=== PATIENT | female | born 1975 | race Caucasian/White ===

== ENCOUNTER → 2021-01-20 | Outpatient (CLI) | payer BC ==
[~2021-01-20] MED LIST: ADDERALL 20 MG20 MG PO; ADIPEX-P37.5 MG PO; ALPRAZOLAM1 MG PO; ASPIRIN-DIPYRI1 EACH PO; MELOXICAM15 MG PO; PRINIVIL20 MG PO; VITAMIN C WITH500 MG PO; VITAMIN D325 MC3 PO; ZINC30 MG PO
[2021-01-20 14:20] LABS: HEMOGLOBIN 15.4 gm/dL (12.0-15.0); MCH 31.7 pg (26.0-34.0); MCHC 34.3 g/dL (28.0-37.0); MCV 92.5 fL (80.0-100.0); RBC 4.87 mil/uL (4.20-5.00); RDW 13.1 % (10.5-14.5); WBC 11.5 thou/uL (4.0-11.0)
[2021-01-20 14:24] LABS: URINE BILIRUBIN NEGATIVE (Negative); URINE BLOOD NEGATIVE (Negative); URINE COLOR YELLOW; URINE GLUCOSE-RANDOM* NEGATIVE (Negative); URINE KETONES NEGATIVE (Negative); URINE LEUKOCYTES-REFLEX 1+ (Negative); URINE NITRITE-REFLEX NEGATIVE (Negative); URINE PROTEIN (DIPSTICK) NEGATIVE (Negative); URINE UROBILINOGEN 0.2 E.U./dl (0.2-1.0)
[2021-01-20 14:25] LABS: URINE CLARITY SL HAZY
[2021-01-20 14:31] LABS: CASTS None Seen /LPF (None Seen); CRYSTALS None Seen /LPF (None Seen); SQUAMOUS >10 Many /LPF (0-3); URINE RBC None Seen /HPF (NONE SEEN); URINE WBC-REFLEX 6-15 Few /HPF (0-5)
[2021-01-20 14:42] LABS: INR 1.03; PROTIME 11.2 Seconds (10.5-12.1)
[2021-01-20 14:47] LABS: ALBUMIN 3.9 g/dL (3.4-5.0); CALCIUM 9.2 mg/dL (8.5-10.1); CREATININE 0.8 mg/dL (0.6-1.0); POTASSIUM 4.3 mmol/L (3.5-5.1)
--- NOTE | 2021-01-21 07:11 | EKG ---
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 HUBBARD : 1975 Requested By: Jas Holm Order Number: [id number] MD: Juventino Ochoa Measurements Intervals [place] Rate: 84 P: 151 MN: 164 QRS: -32 QRSD: 95 T: 145 QT: 400 QTc: 473 Interpretive Statements Sinus or ectopic atrial rhythm Left axis deviation Borderline low voltage, extremity leads Abnormal R-wave progression, late transition Nonspecific T abnormalities, lateral leads Lead(s) II were not used for morphology analysis Baseline wander in lead(s) V1 No previous ECG available for comparison Electronically Signed On 01-21-2021 7:11:33 CDT by Juventino Ochoa [email or web address] <ELECTRONICALLY SIGNED> By: Juventino Ochoa MD, FACC 01/21/21 0711 1350 1350 Juventino Ochoa MD, FAC /EPI
== END ==
LOC: PAC 13:11
PROVIDERS: ATTEND Orthopaedic Surgery
DX: I10 Essential (primary) hypertension (principal); M17.11 Unilateral primary osteoarthritis, right knee

== ENCOUNTER → 2021-02-02 | Outpatient (CLI) | payer BC ==
[~2021-02-02] MED LIST changes: +DILAUDID 2 MG TA2 MG PO; +PERCOCET 10-321 EACH PO; +TRI-BUFFERED A325 M1 PO
--- NOTE | ~2021-02-02 | O ---
[facility] [place] [place] [address] OPERATIVE REPORT Name: BINH GRANT Room #: REG TALIA [place]#: [id number] Admission: 02/02/21 Attend Phys: Kadie Knox DO Discharge: Date of : 73 Report #: [id number] THIS REPORT FOR: cc: Ruddy Mcneal MD, David P. MD Abraham, Scott M. MD ~ DATE OF SERVICE: 02/03/2021 PREOPERATIVE DIAGNOSIS: Left knee medial compartment osteoarthritis. POSTOPERATIVE DIAGNOSIS: Left knee medial compartment osteoarthritis. PROCEDURE: Left medial compartment knee arthroplasty using Navio robotic assistance. SURGEON: Jas Holm MD. PHYSICAL OPTICS TEACHER: Hedy Bee PA-C. INDICATION FOR PHYSICAL OPTICS TEACHER: Throughout the case, extensive retraction, manipulation of the knee was required. This was afforded to me by my purchasing assistant. ANESTHESIA: LMA with adductor canal block. IMPLANTS: A [employer] size 5 Journey II Oxinium medial femoral component, a size 3 tibia and a size 8 polyethylene. TOURNIQUET TIME: 45 minutes. ESTIMATED BLOOD LOSS: 25 mL. COMPLICATIONS: None. SPECIMENS: None. CONDITION UPON LEAVING THE OR: Stable. INDICATIONS FOR PROCEDURE: The patient is a 46-year-old female with severe left knee medial compartment osteoarthritis. She had failed conservative measures for this and after discussion with her, she elected for left medial compartment knee arthroplasty. DESCRIPTION OF PROCEDURE: Risks, benefits, alternatives, complications were discussed in detail with the patient including but not limited to risk of anesthesia, risk of damage to nerves, arteries, blood vessels, risk for infection, bleeding, risk for continued knee pain, need for reoperation. [facility] [address] [address] OPERATIVE REPORT Name: BINH GRANT Room #: REG [facility] Loreta.#: [id number] Admission: 02/02/21 Attend Phys: Kadie Knox DO Discharge: Date of : 73 Report #: [id number] Informed consent was obtained from the patient. Left knee appropriately marked in preoperative holding area. IV Ancef was given for preoperative antibiotics. Adductor canal block was placed by Anesthesia. She was brought to the operating room and placed in supine position on the operating room table. LMA anesthesia was induced without complication. Tourniquet was placed on the left thigh. Left lower extremity was prepped and draped in normal sterile fashion. Timeout was performed properly identifying the patient and procedure as well as instrumentation and implants. All in the operating room was in agreement. Left lower extremity was exsanguinated and tourniquet inflated. Tourniquet time was 45 minutes. Standard midline approach to knee was made with 10 blade through the skin. Dissection was taken down sharply to the fascia and deep flaps were developed medially and laterally. Fresh 10 blade was used to make a medial parapatellar arthrotomy and the knee was inspected. There was severe medial compartment osteoarthritis in the patellofemoral compartment. Lateral compartment was well maintained. ACL was intact. It was decided to proceed with medial compartment arthroplasty. Reference pins were placed in the femur and the tibia. The knee was digitally mapped using the [employer] robotic system. Intraoperative plan was made. We sized the size 5 femur, the size 3 tibia and a 9 spacer. After acceptance of the intraoperative plan, the femoral and tibial resections were made with a Navio bur. Tibial resection was cleaned up with a rasp and tibia was sized, found to be a size 3. A size 3 tibial trial was pinned and drilled. The size 5 femoral trial was placed. This was then trialed with a size 8 polyethylene. Size 8 polyethylene demonstrated 2 mm laxity medially throughout range of motion of the knee. Trial components were removed. Bone ends were thoroughly irrigated with normal saline. A final size 3 tibia, size 5 Journey II Oxinium medial femoral component were cemented in place using standard cementation techniques. While the cement cured, a periarticular injection consisting of ropivacaine, epinephrine, Toradol was placed around the knee joint capsule. After the cement cured, tourniquet was deflated. Hemostasis was obtained with Bovie cautery. Final size 8 polyethylene was placed. Vancomycin was placed in the joint. Fascia was closed with 0 Vicryl. Skin was closed with 2-0 Vicryl, 3-0 Monocryl, Dermabond and a PRADEEP dressing was applied. The patient tolerated this procedure well and went to recovery room under care of Anesthesia postoperatively. By: [id number] Jas Holm MD /nt
== END ==
LOC: LAB 09:12
PROVIDERS: ATTEND Student in an Organized Health Care Education/Training Program
DX: Z01.812 Encounter for preprocedural laboratory examination (principal); Z20.822 Contact with and (suspected) exposure to COVID-19

== ENCOUNTER 2021-02-03 06:35 | Observation (INO) | payer BC ==
[~2021-02-03] VITALS: Ht 172.7 cm; Wt 120.2 kg
[~2021-02-03 06:35] MED LIST changes: -DILAUDID 2 MG TA2 MG PO; -PERCOCET 10-321 EACH PO; -TRI-BUFFERED A325 M1 PO
[2021-02-03 09:24] VITALS: BP 122/75
[2021-02-03 11:26] VITALS: BP 120/76
--- NOTE | 2021-02-03 13:28 | NUR ---
Pt transferred to unit from PACU. Pt a&ox4. Pain controlled with prn pain medications. Dressing c/d/i. Up to the bedside commode SBA with gait-belt and walker. IVF infusing. Able to void and tolerate diet. Call light within reach. Fall precautions in place. Will continue to monitor.
--- NOTE | 2021-02-03 15:23 | NUR ---
Chart reviewed and case discussed with the care team. Pt is s/p knee surgery and has been seen by therapy. She has a rwalker at home if needed and plans for outpt therapy. Dc likely tomorrow. Pt has health ins in place for f/u care. No cm interventions indicated.
[2021-02-03 15:53] VITALS: BP 150/87
[2021-02-03 21:30] VITALS: BP 122/75
--- NOTE | 2021-02-04 01:24 | NUR ---
ASSESSED AT START OF SHIFT. PT RESTING IN BED. IV INTACT AND FLUIDS INFUSING UP WITH SBA TO THE BATHROOM. PRADEEP DRESSING, POLAR PACK AND SCD'S IN PLACE. OXYCODONE GIVEN FOR PAIN MANAGEMENT. FALL PREC IN PLACE AND CALL LIGHT AT REACH WILL CONT TO MONITOR.
--- NOTE | 2021-02-04 11:00 | NUR ---
Assumed care of pt at 0700. Pt a&ox4. Pt states pain has not been controlled overnight after her nerve block wore off. Provider notified. New orders noted. SBA with walker and gait-belt. Will discharge to home today. Call light within reach. Fall precautions in place. Will continue to monitor.
[2021-02-04] MEDS ORDERED: DILAUDID 2 MG TA2 MG PO (11:24)
[2021-02-04] MEDS ORDERED: PERCOCET 10-321 EACH PO (11:24)
[2021-02-04] MEDS ORDERED: TRI-BUFFERED A325 M1 PO (11:25)
--- NOTE | 2021-02-04 12:14 | NUR ---
CARE TEAM INDICATED THAT PT IS MEDICALLY STABLE TO DC HOME THIS DAY. PT IS ESTABLISHED WITH OP PT UPON DC AND HAS ALL RECOMMENDED DME. NO OTHER CM INTERVENTION INDICATED. CASE CLOSED.
[2021-02-04 13:48] VITALS: BP 122/75
== END 2021-02-04 14:18 | disposition home or self-care (01) ==
LOC: OR → TBA 06:37 → OR 10:02 → 4S 10:48 → OR 11:19 → 4S 02-04 14:18
PROVIDERS: ADMIT Orthopaedic Surgery; ATTEND Orthopaedic Surgery
DX: M17.12 Unilateral primary osteoarthritis, left knee (principal); Z88.5 Allergy status to narcotic agent; Z20.822 Contact with and (suspected) exposure to COVID-19
CPT/HCPCS: 50010; 50101; 50415; 50954; 51130; 51225; 53078; 53370; 54118; 56527; 56528; 57095; 57103; 57110; 57127; 59024; 62110; 62900; 64042; 70005